=== PATIENT | male | born 1975 | race Caucasian/White ===

== ENCOUNTER 2016-11-26 16:48 | Emergency (ER) | payer OTHER ==
[2016-11-26 16:50] VITALS: BP 156/84; PULSE 59; RESP 16; TEMP 97.8; O2SAT 97
[2016-11-26] MEDS ORDERED: IBUP800T23 PO (18:10)
[2016-11-26] MEDS ORDERED: ROBA500T PO (18:10)
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
== END 2016-11-26 18:50 | disposition home or self-care (01) ==
LOC: NEPB 16:48
DX: S46.812A Strain of other muscles, fascia and tendons at shoulder and upper arm level, left arm, initial encounter (principal); M54.2 Cervicalgia; V89.2XXA Person injured in unspecified motor-vehicle accident, traffic, initial encounter
CPT/HCPCS: 99283

== ENCOUNTER → 2016-12-30 | Day surgery (SDC) | payer OTHER ==
[~2016-12-30] MED LIST: BUPIVACAINE/EPINEPHRINE 0.5% PF 30 ML VIAL ONE; IBUP800T23 PO; KETOROLAC TROMETHAMINE 30 MG/ML (IVP) VIAL IV PUSH ONE; LACTATED RINGER'S 1000 ML INJ 1,000 ML ONE; MIDAZOLAM HCL 2 MG/2 ML VIAL ONE; ONDANSETRON HCL 4 MG/2 ML VIAL IV PUSH ONE; PROPOFOL 200 MG/20 ML AMP IV ONE; ROBA500T PO; ceFAZolin 2 GM PREMIX 50 ML ONE
--- NOTE | 2016-12-30 13:25 | TN ---
cc: EMILIE VALLADARES M.D. DATE OF SURGERY 12/30/2016 PREOPERATIVE DIAGNOSIS Right inguinal hernia. POSTOPERATIVE DIAGNOSES 1. Right inguinal hernia. 2. Indirect right inguinal hernia. PROCEDURE PERFORMED Laparoscopic right inguinal hernia repair with mesh. SURGEON Emilie Valladares MD [employer] ATTENDANT PHILIP Pinto SECOND CHAINER Bri Koroma, MS3 ANESTHESIA General LMA. COMPLICATIONS None. INDICATION FOR PROCEDURE Mr. Moulton is a very pleasant 41-year-old gentleman who has symptomatic right inguinal hernia. He was seen and evaluated in the office and offered elective repair. The risks and benefits of repair both laparoscopic and open was discussed with him and he elected laparoscopic. The patient had no evidence of a left inguinal hernia nor did he have any symptoms at the time of exam. DETAILS The patient was identified, brought to the operating room and placed supine on the operating table. After adequate general anesthesia achieved with LMA, the anterior abdomen and groin was prepped and draped in standard surgical fashion. Infraumbilical space was anesthetized with 0.25% Marcaine. Infraumbilical incision was made. Dissection was carried down in the subcutaneous tissue to the anterior rectus fascia. Anterior rectus fascia was then incised vertically off the midline. The rectus muscles were then retracted laterally and the preperitoneal space was entered with blunt finger dissection. Blunt dissecting balloon was inserted and insufflated with 30 pumps of air under direct vision using 0 degree laparoscope. The dissecting balloon was then removed and balloon trocar inserted. Preperitoneal space was insufflated to 11 mmHg using CO2 gas. Next, two 5-mm trocars were placed in the lower midline under direct vision after anesthetizing the skin and subcutaneous tissue with 0.255 Marcaine. Attention was directed to the midline where the pubic tubercle and Bal's ligament were identified. Dissection proceeded out laterally identifying the cord structures exiting the internal ring. Traveling with the cord structures was a small cord lipoma and an indirect inguinal hernia sac. These were carefully dissected out of the canal and back off of the cord structures. The posterior window was then made behind the cord structures. The piece of polypropylene mesh was inserted with a slit cut for the cord structures. This was placed through the posterior window and then the slit was reapproximated around the cord structures tightening the internal ring using the tacking device. The mesh then secured medially at Bal's ligament and the pubic tubercle and superiorly along the posterior abdominal wall fascia. An onlay mesh was then placed over the slit and this was secured medially and laterally. With this the indirect and direct spaces were well covered by mesh. 0.25% Marcaine was injected in the operative field. The inferior border of the mesh was held down and the peritoneum was seen to roll up over the mesh again with excellent coverage of the indirect and direct spaces. All trocars were removed under direct vision. Anterior rectus fascia was repaired with 0 Vicryl in a [id number] fashion. The skin was closed with 4-0 Vicryl. The patient tolerated the procedure well, was awakened and brought to Recovery in stable condition. Please note the presence of the MANAGING ATTORNEY first press operator was medically necessary due to her specialized surgical skills and knowledge of my surgical technique. She was present and scrubbed for the entire procedure. MD RICK Moreno/FORD /1:06 PM /1:17 PM MTDMissy
== END | disposition home or self-care (01) ==
LOC: ESDC 10:25
PROVIDERS: ATTEND Surgery Trauma Surgery
DX: K40.90 Unilateral inguinal hernia, without obstruction or gangrene, not specified as recurrent (principal)
CPT/HCPCS: 00840; 49650; C1727; C1781; J0690; J1885; J2250; J2405; J3010; J7120